=== PATIENT | male | born 1940 ===

== ENCOUNTER 2020-06-25 14:52 | Inpatient (IN) | payer OTHER, MEDICAID, SELFPAY ==
[~2020-06-25] VITALS: Ht 190.5 cm; Wt 76.2 kg
[2020-06-25 15:01] VITALS: BP 142/81
[2020-06-25 15:16] VITALS: BP 116/62
--- NOTE | 2020-06-25 15:31 | NUR ---
Patient ambulated to bed 03
--- NOTE | 2020-06-25 15:44 | NUR ---
80YO M BIB CAREGIVER FROM [facility] C/O WORSENING AGGRESSION, HALLUCINATION AT NIGHT X 2 MONTHS. PER CAREGIVER, PT CALM AND ACTING PROPERLY DURING THE DAY. DENIES FEVER,, CP. DENIES RECENT TRAUMA. ED, PT IS AOX2. VSS. ACTING APPROPRIATELY. CLEAR BREATH SOUNDS. PT POSITIONED COMFORTBLY IN BED. ERMD MADE AWARE OF PT STATUS. PMH: HTN, DEMENTIA ALLERGY: SULFA ANTOBIOTICS
--- NOTE | 2020-06-25 15:45 | NUR ---
PATIENT BROUGHT TO CT AT THIS TIME
--- NOTE | 2020-06-25 16:57 | NUR ---
JUAN CARLOS SWAB DONE. WALKED TO LAB
--- NOTE | 2020-06-25 17:33 | NUR ---
CALLED SHONNA DELGADO TO GIVE REPORT. ASKED TO CALL BACK.
--- NOTE | 2020-06-25 17:59 | NUR ---
Patient will be admitted to care of DR HENDERSON. Admited to [facility]. Will go to room 110A. Belongings list completed. Report to SHONNA DELGADO.
--- NOTE | 2020-06-25 17:59 | NUR ---
RECEIVED PT FROM [facility]. PT HAS LAC 20G SALINE LOCK. PT AMBULATED ONTO BED. PT ON ROOM AIR. INTRODUCE PT TO ROOM, OBTAINED MRSA SWAB. SAFETY MEASURES IN PLACE, WILL CONTINUE TO MONITOR PT.
[2020-06-25] MEDS ORDERED: ONDANSETRON 4 MG/2 ML VIAL IM/IVP PRN (18:00)
[2020-06-25] MEDS ORDERED: ZOLPIDEM 5 MG TAB PO PRN (18:00)
[2020-06-25] MEDS ORDERED: guaiFENesin DM 200/20 MG-10 ML 10 ML UDC PO PRN (18:00)
[2020-06-25] MEDS ORDERED: DOCUSATE SODIUM 100 MG GELCAP PO PRN (18:00)
[2020-06-25] MEDS ORDERED: POTASSIUM CHLORIDE 10 MEQ TABER PO PRN (18:00)
[2020-06-25] MEDS ORDERED: ACETAMINOPHEN 325 MG TAB PO PRN (18:00)
[2020-06-25] MEDS ORDERED: HYDROcodone/APAP 7.5/325 MG 1 TAB PO PRN (18:00)
--- NOTE | 2020-06-25 18:00 | NUR ---
ADMITTING VITAL SIGNS, TEMP:97.5, BP: 135/68, HR:62, O2:100, RR:20
[2020-06-25] MEDS ORDERED: RISP0.5T3 PO (18:19)
[2020-06-25] MEDS ORDERED: VITD400 PO (18:19)
[2020-06-25] MEDS ORDERED: LISI-420 PO (18:19)
[2020-06-25] MEDS ORDERED: MEMA5TAB PO (18:19)
[2020-06-25] MEDS ORDERED: FERR325E14 PO (18:19)
[2020-06-25] MEDS ORDERED: AMAN100S37 PO (18:19)
[2020-06-25] MEDS ORDERED: OMEP20EC11 PO (18:19)
[2020-06-25] MEDS ORDERED: ATEN25TA7 PO (18:19)
[2020-06-25] MEDS ORDERED: MULT-2253 PO (18:19)
[2020-06-25 19:16] LABS: BASOPHILS # (AUTO) 0.1 K/uL (0.00-0.22); BASOPHILS % (AUTO) 1.6 % (0.0-2.0); EOSINOPHILS # (AUTO) 0.4 K/uL (0-0.4); EOSINOPHILS % (AUTO) 5.4 % (0.0-4.0); HEMATOCRIT 40.3 % (36-52); LYMPHOCYTES # (AUTO) 0.5 K/uL (2.0-11.5); LYMPHOCYTES % (AUTO) 7.6 % (20.5-51.1); MEAN CORPUSCULAR HEMOGLOBIN 30 pg (27-31); MEAN CORPUSCULAR HGB CONC 32 g/dL (33-37); MEAN CORPUSCULAR VOLUME 92.7 fL (80-94); MONOCYTES # (AUTO) 0.6 K/uL (0.8-1.0); MONOCYTES % (AUTO) 9.2 % (1.7-9.3); NEUTROPHILS # (AUTO) 5.4 K/uL (1.8-7.7); NEUTROPHILS % (AUTO) 76.2 % (42.2-75.2); PLATELET COUNT (AUTO) 308 K/uL (140-450); RED BLOOD CELL COUNT(AUTO) 4.35 MIL/uL (4.20-6.10); RED CELL DISTRIBUTION WIDTH 14.7 % (11.6-13.7); WHITE BLOOD COUNT (AUTO) 7.1 K/uL (4.8-10.8)
--- NOTE | 2020-06-25 19:23 | NUR ---
ENDORSE PT TO NIGHT NURSE FOR CONTINUITY OF CARE.
[2020-06-25 19:32] LABS: ALBUMIN 3.4 g/dL (3.4-5.0); ANION GAP 12.1 (8-16); ASPARTATE AMINOTRANSFERASE 14 U/L (15-37); CARBON DIOXIDE 26.2 mmol/L (21-32); CHLORIDE 107 mmol/L (98-107); GLUCOSE 103 mg/dL (74-106); POTASSIUM 4.3 mmol/L (3.5-5.1); SODIUM SERUM 141 mmol/L (136-145); TOTAL BILIRUBIN 0.2 mg/dL (0.0-1.0); UREA NITROGEN, BLOOD 30 mg/dL (7-18)
[2020-06-25 19:40] LABS: PROTHROMBIN TIME 9.9 secs (10.8-13.4)
[2020-06-25 20:00] VITALS: BP 110/65
--- NOTE | 2020-06-25 20:00 | NUR ---
RECEIVED PATIENT AWAKE AND ALERT IN BED. PATIENT ON RA. NO SOB OR S/S OF DISTRESS. NO C/O PAIN. PATIENT CALM AND COOPERATIVE AT THIS TIME. BED LOWERED WITH CALL LIGHT WITHIN REACH. PT INSTRUCTED TO USE THE CALL LIGHT WHEN IN NEED OF ASSISTANCE. PATIENT VERBALIZED UNDERSTANDING. WILL CONTINUE TO MONITOR
[2020-06-25 20:04] LABS: CHOL/HDL RATIO 3.8 (1-4.5); FREE T4 (FREE THYROXINE) 0.98 ng/dL (0.76-1.46); PHOSPHORUS 3.1 mg/dL (2.5-4.9); THYROID STIMULATING HORMONE 0.6 uIU/mL (0.34-3.74)
--- NOTE | 2020-06-25 23:29 | NUR ---
URINE COLLECTED AND SENT TO THE LAB
[2020-06-25 23:37] LABS: APPEARANCE,URINE SL CLOUDY (CLEAR); BILIRUBIN,URINE NEGATIVE (NEGATIVE); BLOOD, URINE NEGATIVE (NEGATIVE); COLOR,URINE YELLOW (YELLOW); LEUKOCYTE ESTERASE ,URINE 1+ (NEGATIVE); NITRITE, URINE NEGATIVE (NEGATIVE); UGLUCOSE NEGATIVE (NEGATIVE)
[2020-06-25 23:46] LABS: RBC,URINE 0-5 /HPF (0-5)
[2020-06-25 23:47] LABS: BARBITURATE, URINE NEGATIVE ng/ml (NEG <=200); BENZODIAZEPINE, URINE NEGATIVE ng/mL (NEG <=200); CANNABINOID, URINE NEGATIVE ng/mL (NEG <=50); COCAINE, URINE NEGATIVE ng/mL (NEG <=300); OPIATE, URINE NEGATIVE ng/mL (NEG <=2000); PHENCYCLIDINE SCREEN,URINE NEGATIVE ng/mL (NEG <=25)
--- NOTE | 2020-06-26 03:38 | NUR ---
PATIENT AWAKE IN BED, WATCHING TELEVISION. NO S/S OF DISTRESS NOTED
[2020-06-26 04:00] VITALS: BP 113/69
[2020-06-26 06:32] LABS: BASOPHILS % (AUTO) 0.5 % (0.0-2.0); EOSINOPHILS # (AUTO) 0.4 K/uL (0-0.4); EOSINOPHILS % (AUTO) 5.7 % (0.0-4.0); HEMATOCRIT 38.5 % (36-52); HEMOGLOBIN 12.4 g/dL (12.0-18.0); LYMPHOCYTES # (AUTO) 0.6 K/uL (2.0-11.5); MEAN CORPUSCULAR HEMOGLOBIN 30 pg (27-31); MEAN CORPUSCULAR HGB CONC 32 g/dL (33-37); MEAN CORPUSCULAR VOLUME 92.4 fL (80-94); MONOCYTES # (AUTO) 0.9 K/uL (0.8-1.0); MONOCYTES % (AUTO) 12.5 % (1.7-9.3); NEUTROPHILS # (AUTO) 5.1 K/uL (1.8-7.7); NEUTROPHILS % (AUTO) 73.3 % (42.2-75.2); PLATELET COUNT (AUTO) 281 K/uL (140-450); RED BLOOD CELL COUNT(AUTO) 4.16 MIL/uL (4.20-6.10); RED CELL DISTRIBUTION WIDTH 14.3 % (11.6-13.7); WHITE BLOOD COUNT (AUTO) 6.9 K/uL (4.8-10.8)
[2020-06-26 06:57] LABS: ANION GAP 13.2 (8-16); CARBON DIOXIDE 25.2 mmol/L (21-32); CHLORIDE 108 mmol/L (98-107); GLUCOSE 95 mg/dL (74-106); POTASSIUM 4.4 mmol/L (3.5-5.1); SODIUM SERUM 142 mmol/L (136-145); UREA NITROGEN, BLOOD 29 mg/dL (7-18)
--- NOTE | 2020-06-26 07:26 | NUR ---
PATIENT REPORT GIVEN TO AM NURSE
--- NOTE | 2020-06-26 07:26 | NUR ---
RECIEVED REPORT FROM NIGHT NURSE FOR CONTINUITY OF CARE. PT IS STABLE, PT SITTING UP IN BED. PT HAS LAC 20G SALINE LOCK, SKIN INTACT. SAFETY MEASURES IN PLACE, WILL CONTINUE TO MONITOR.
[2020-06-26 08:00] VITALS: BP 100/53
[2020-06-26] MEDS: PANTOPRAZOLE 40 MG TABEC PO SCH (08:17)
--- NOTE | 2020-06-26 08:19 | NUR ---
ADMINISTERED SCHEDULED MEDICATION, MEDICATION EDUCATION PROVIDED. PT TOLERATED WELL. PT IS STABLE, WILL CONTINUE TO MONITOR.
--- NOTE | 2020-06-26 09:05 | NUR ---
PATIENT HAS BEEN SCREENED AND CATEGORIZED MODERATE NUTRITION RISK. PATIENT WILL BE SEEN WITHIN 3-5 DAYS OF ADMISSION. 06/28/20 06/30/[address]
--- NOTE | 2020-06-26 10:47 | NUR ---
ADMINISTERED SCHEDULED MEDICATION, MEDICATION EDUCATION PROVIDED. PT TOLERATED WELL. PT IS STABLE, WILL CONTINUE TO MONITOR.
--- NOTE | 2020-06-26 11:30 | NUR ---
ROUNDING ON PT, PT IS STABLE, WILL CONTINUE TO MONITOR
--- NOTE | 2020-06-26 13:00 | NUR ---
ROUNDING ON PT, PT IS STABLE, WILL CONTINUE TO MONITOR.
--- NOTE | 2020-06-26 14:29 | NUR ---
DC WAREHOUSE GENERAL LABORER: PLAN FOR DC BACK TO [facility] THIS WEEKEND. FAXED PATIENTS CLINICALS.
--- NOTE | 2020-06-26 15:00 | NUR ---
PT RESTING IN BED, NO SIGNS OF DISTRESS NOTED, WILL CONTINUE TO MONITOR
[2020-06-26 16:00] VITALS: BP 131/82
--- NOTE | 2020-06-26 17:00 | NUR ---
ROUNDING ON PT, PT IS STABLE, WILL CONTINUE TO MONITOR.
--- NOTE | 2020-06-26 19:20 | NUR ---
ENDORSE PT TO NIGHT NURSE FOR CONTINUITY OF CARE.
[2020-06-26 20:00] VITALS: BP 118/66
--- NOTE | 2020-06-27 | NUR ---
MADE ROUNDS , NO S/X OF ACUTE DISTRESS NOTED . WILL CONT. TO MONITOR .
--- NOTE | 2020-06-27 03:40 | NUR ---
PT . SUDDENLY WOKE UP - STAND UP - WALKING IN THE ROOM , THEM WASH HIS HANDS FOR A LONG PERIOD OF TIME . - WILL CONT. TO MONITOR . WHEN I ASK HIM IF HE IS OK - HE SAID YES I'M OK .
--- NOTE | 2020-06-27 06:00 | NUR ---
RESTING ON BED COMFORTABLY - NO SIGNS OF DISTRESS NOTED .
[2020-06-27 06:54] LABS: BASOPHILS % (AUTO) 0.3 % (0.0-2.0); EOSINOPHILS # (AUTO) 0.4 K/uL (0-0.4); HEMATOCRIT 38.4 % (36-52); HEMOGLOBIN 12.8 g/dL (12.0-18.0); LYMPHOCYTES # (AUTO) 0.5 K/uL (2.0-11.5); LYMPHOCYTES % (AUTO) 6.9 % (20.5-51.1); MEAN CORPUSCULAR HEMOGLOBIN 31 pg (27-31); MEAN CORPUSCULAR HGB CONC 33 g/dL (33-37); MEAN CORPUSCULAR VOLUME 92.2 fL (80-94); MONOCYTES # (AUTO) 0.8 K/uL (0.8-1.0); MONOCYTES % (AUTO) 12.2 % (1.7-9.3); NEUTROPHILS % (AUTO) 74.6 % (42.2-75.2); PLATELET COUNT (AUTO) 271 K/uL (140-450); RED BLOOD CELL COUNT(AUTO) 4.16 MIL/uL (4.20-6.10); RED CELL DISTRIBUTION WIDTH 14.4 % (11.6-13.7); WHITE BLOOD COUNT (AUTO) 6.7 K/uL (4.8-10.8)
[2020-06-27 06:59] LABS: ANION GAP 9.2 (8-16); CARBON DIOXIDE 27.7 mmol/L (21-32); CHLORIDE 105 mmol/L (98-107); CREATININE 1.7 mg/dL (0.6-1.3); GLUCOSE 83 mg/dL (74-106); POTASSIUM 4.9 mmol/L (3.5-5.1); SODIUM SERUM 137 mmol/L (136-145); UREA NITROGEN, BLOOD 32 mg/dL (7-18)
--- NOTE | 2020-06-27 07:20 | NUR ---
RECEIVED PATIENT FROM NIGHT NURSE. PATIENT IN BED AWAKE AND ALERT. RESP EVEN AND UNLABORED ON ROOM AIR. DENIED OF PAIN AT THIS TIME. RH 22G SL. PLAN OF CARE DISCUSSED, PT VERBALIZED UNDERSTANDING. CALL LIGHT WITHIN REACH. WILL CONTINUE TO MONITOR.
--- NOTE | 2020-06-27 07:20 | NUR ---
ENDORSED - PT - STABLE .
[2020-06-27 08:00] VITALS: BP 116/72
[2020-06-27 08:08] LABS: T4 (THYROXINE) 7.8 ug/dL (4.5-12.0)
--- NOTE | 2020-06-27 08:35 | NUR ---
PATIENT AWAKE, ALERT, AND ORIENTED. PATIENT SITTING UP IN BED FINISHING UP BREAKFAST. RESP EVEN AND UNLABORED ON ROOM AIR. DENIED OF PAIN AT THIS TIME. MORNING ROUTINE MEDICATIONS GIVEN. PATIENT TOLERATED WELL. RH 22G INTACT AND PATENT, SL. NO ACUTE S/S DISTRESS. CALL LIGHT WITHIN REACH. WILL CONTINUE TO MONITOR.
[2020-06-27] MEDS: PANTOPRAZOLE 40 MG TABEC PO SCH (08:38)
--- NOTE | 2020-06-27 11:25 | NUR ---
PATIENT IN BED SLEEPING, CHEST NOTED RISING. NO NOTED ACUTE S/S DISTRESS. CALL LIGHT WITHIN REACH. WILL CONTINUE TO MONITOR.
[2020-06-27 12:56] LABS: URINE TOTAL PROTEIN 13.3 mg/dL (0-12)
--- NOTE | 2020-06-27 13:35 | NUR ---
PATIENT UNDER THE COVER SLEEPING. RESP NOTED UNLABORED. CALL LIGHT WITHIN REACH. WILL CONTINUE TO MONITOR.
[2020-06-27] MEDS: NACL 0.9% 1,000 ML IV SCH (15:13)
--- NOTE | 2020-06-27 15:31 | NUR ---
PATIENT IN BED AWAKE AND ALERT. DENIED OF PAIN AT THIS TIME CALL LIGHT WITHIN REACH. WILL CONTINUE TO MONITOR.
[2020-06-27 16:00] VITALS: BP 128/61
--- NOTE | 2020-06-27 17:32 | NUR ---
PATIENT IN BED AWAKE AND ALERT. RESP EVEN AND UNLABORED ON ROOM AIR. DENIED OF PAIN AT THIS TIME. CALL LIGHT WITHIN REACH. WILL CONTINUE TO MONITOR.
--- NOTE | 2020-06-27 19:08 | NUR ---
ENDORSED PATIENT TO NIGHT NURSE. PATIENT IN STABLE CONDITION.
--- NOTE | 2020-06-28 07:21 | NUR ---
RECEIVED PATIENT FROM NIGHT NURSE. PATIENT IN BED AWAKE AND ALERT. SLEPT WELL THROUGH THE NIGHT. NO NOTED DISTRESS AT THIS TIME. PLAN OF CARE DISCUSSED. PATIENT VERBALIZED UNDERSTANDING. RH 22G INFUSING NS 50ML/HR. CALL LIGHT WITHIN REACH. WILL CONTINUE TO MONITOR.
[2020-06-28 08:00] VITALS: BP 115/67
[2020-06-28] MEDS: PANTOPRAZOLE 40 MG TABEC PO SCH (08:34)
--- NOTE | 2020-06-28 08:45 | NUR ---
PATIENT SITTING UP IN BED EATING BREAKFAST. RESP EVEN AND UNLABORED ON ROOM AIR. DENIED OF PAIN AT THIS TIME. RH 22G INFUSING NS 50ML/HR. MORNING ROUTINE MEDICATIONS GIVEN, PATIENT TOLERATED WELL. NO NOTED DISTRESS AT THIS TIME. CALL LIGHT WITHIN REACH. WILL CONTINUE TO MONITOR.
[2020-06-28] MEDS: NACL 0.9% 1,000 ML IV SCH (10:25)
[2020-06-28] MEDS ORDERED: PANT40EC56 PO (10:58)
--- NOTE | 2020-06-28 11:05 | NUR ---
PATIENT IN BED SLEEPING, CHEST NOTED RISING. NO NOTED DISTRESS. CALL LIGHT WITHIN REACH. WILL CONTINUE TO MONITOR.
--- NOTE | 2020-06-28 12:23 | NUR ---
SPOKE WITH PAM AT [facility], STATED TO FAX OVER PT'S NEGATIVE COVID RESULT. PER PAM, SHE WILL CALL ME BACK FOR THE ROOM AND BED NUMBER. RN ASSIGNED MADE AWARE.
--- NOTE | 2020-06-28 13:30 | NUR ---
FAXED COVID NEGATIVE RESULT TO PAM ([facility]) REQUESTED. PAM CALLED BACK, STATED THEY ACCEPTED PT, GOING TO ROOM 24-B UNDER DR. HENDERSON. CONTACTED [employer], NO AVAILABLE TRANSPORT SERVICE TODAY. CONTACTED [facility], STATED THEY WON'T TAKE PT'S INSURANCE. RN ASSIGNED PRECIOUS AND EYSICA THAKKAR MADE AWARE.
--- NOTE | 2020-06-28 13:55 | NUR ---
CALLED TO [facility] AND GAVE REPORT TO OSMAR MÉNDEZ RN. AWAITING FOR MECHANICAL MAINTENANCE SUPERVISOR TIME
[2020-06-28 13:58] VITALS: BP 66/115
--- NOTE | 2020-06-28 15:44 | NUR ---
CALLED PT'S BROTHER JUDD TO SEE IF HE CAN VITICULTURIST PT AND BRING HIM TO [facility]. PER JUDD, HE IS [address]ES AWAY FROM [facility] AND CAN'T VITICULTURIST PT TODAY. CONTACTED GAEL ([employer] ADMIN FOR THE [facility]) STATED SHE CAN CALL AN [facility] FOR PT. RN ASSIGNED AND HOUSE SUP AWARE.
--- NOTE | 2020-06-28 15:51 | NUR ---
PATIENT DISCHARGED TO [facility] VIA [facility]. PATIENT LEFT WITH ALL PERSONAL BELONGINGS. PATIENT LEFT IN STABLE CONDITION.S DISCHARGE INSTRUCTIONS GIVEN. PATIENT VERBALIZED UNDERSTANDING.
== END 2020-06-28 16:08 | DRG 70 ==
LOC: MED 14:52 → MTU 17:05
PROVIDERS: ADMIT Family Medicine; ATTEND Family Medicine
DX: G93.41 Metabolic encephalopathy (principal); N17.0 Acute kidney failure with tubular necrosis; N39.0 Urinary tract infection, site not specified; E86.0 Dehydration; E78.2 Mixed hyperlipidemia; F03.90 Unspecified dementia, unspecified severity, without behavioral disturbance, psychotic disturbance, mood disturbance, and anxiety; N28.1 Cyst of kidney, acquired; Z20.822 Contact with and (suspected) exposure to COVID-19; F20.9 Schizophrenia, unspecified; I10 Essential (primary) hypertension; K21.9 Gastro-esophageal reflux disease without esophagitis; Z88.2 Allergy status to sulfonamides
CPT/HCPCS: 36415; 70450; 71045; 76770; 80048; 80053; 80305; 81001; 82150; 82570; 83036; 83690; 83735; 83880; 84100; 84300; 84436; 84439; 84443; 84479; 84484; 85025; 85610; 85730; 87081; 87086; 99285; J0696; J7030; J7060